=== PATIENT | male | born 1995 | race Caucasian/White ===

== ENCOUNTER 2017-05-24 03:33 | Emergency (ER) | payer OTHER ==
[2017-05-24 04:02] VITALS: BP 145/93
[2017-05-24 04:04] VITALS: PULSE 90; RESP 20; TEMP 98.1; O2SAT 98; BMI 26.4
--- NOTE | 2017-05-24 04:12 | ED PDOC ---
Arrival/HPI - General Historian: Patient - History of Present Illness Time/Duration: Prior to Arrival Symptom Onset: Sudden Symptom Course: Unchanged Severity Level: Mild Activities at Onset: Rest Context: Sitting <Valerie Valerio - Last Filed: 05/24/17 04:18> <Corey Pemberton - Last Filed: 05/24/17 06:27> - General Chief Complaint: Bite Time Seen by Provider: 05/24/17 03:47 - History of Present Illness Narrative History of Present Illness (Text): 05/24/17 04:12 21M w/no sig PMH evaluated s/p tick bite. Pt reports noting periumbilical ab pain with small lump in his umbilicus. Pt attempted to remove the lump, does not know how long the lump was present, was able to remove a tick, which feel onto his bedroom floor. Pt denies recent hiking/outdoor activities. States that the last time he was outside was several weeks ago. Denies N/V/F/C, rashes, CP, current ab pain, constipation, diarrhea, headache, vision changes, numbness/tingling, other complaints. PMH: Denies PSH: Denies All: Denies SH: Admits to occasional ETOH use (1 drink per wk), denies tobacco use, admits to MJ use and hx cocaine use (Valerie Valerio) Associated Symptoms (Text): 05/24/17 04:12 None (Valerie Valerio) Past Medical History - Provider Review Nursing Documentation Reviewed: Yes - Psychiatric Hx Substance Use: Yes - Anesthesia Hx Anesthesia: No Hx Anesthesia Reactions: No Hx Malignant Hyperthermia: No <Valerie Valerio - Last Filed: 05/24/17 04:18> Family/Social History - Physician Review Nursing Documentation Reviewed: Yes Family/Social History: No Known Family HX Smoking Status: Never Smoked Hx Alcohol Use: Yes Frequency of alcohol use: Socially Hx Substance Use: Yes Substance used: cocaine <Valerie Valerio - Last Filed: 05/24/17 04:18> Allergies/Home Meds <Valerie Valerio - Last Filed: 05/24/17 04:18> <Corey Pemberton - Last Filed: 05/24/17 06:27> Allergies/Adverse Reactions: Allergies No Known Allergies Allergy (Verified 11/13/15 01:46) Review of Systems - Physician Review All systems were reviewed & negative as marked: Yes - Review of Systems Constitutional: Normal. absent: Fevers Eyes: Normal. absent: Vision Changes ENT: Normal. absent: Sore Throat Respiratory: Normal. absent: SOB Cardiovascular: Normal. absent: Chest Pain Gastrointestinal: Normal. absent: Abdominal Pain, Constipation, Diarrhea, Nausea, Vomiting Genitourinary Male: Normal. absent: Dysuria, Frequency, Hematuria Musculoskeletal: Normal. absent: Back Pain Skin: Normal. absent: Rash, Pruritis, Skin Lesions Neurological: Normal. absent: Headache <Valerie Valerio - Last Filed: 05/24/17 04:18> Physical Exam Vital Signs Reviewed: Yes Temperature: Afebrile Blood Pressure: Normal Pulse: Regular Respiratory Rate: Normal Appearance: Positive for: Well-Appearing, Non-Toxic, Comfortable Pain Distress: None Mental Status: Positive for: Alert and Oriented X 3 - Systems Exam Head: Present: Atraumatic, Normocephalic Extroacular Muscles: Present: EOMI Conjunctiva: Present: Normal Mouth: Present: Moist Mucous Membranes Nose (External): Present: Atraumatic Neck: Present: Normal Range of Motion Respiratory/Chest: Present: Clear to Auscultation, Good Air Exchange. No: Respiratory Distress, Accessory Muscle Use Cardiovascular: Present: Regular Rate and Rhythm. No: Murmurs, Normal S1, S2 Abdomen: Present: Normal Bowel Sounds. No: Tenderness, Distention, Peritoneal Signs Back: Present: Normal Inspection Upper Extremity: Present: Normal Inspection. No: Cyanosis, Edema Lower Extremity: Present: Normal Inspection. No: Edema Neurological: Present: GCS=15, CN II-XII Intact, Speech Normal Skin: Present: Warm, Dry, Erythematous (periumbilical) Psychiatric: Present: Alert, Oriented x 3, Normal Insight, Normal Concentration <Valerie Valerio - Last Filed: 05/24/17 04:18> Vital Signs Temp Pulse Resp BP Pulse Ox 05/24/17 04:02 145/93 H 05/24/17 03:51 98.1 F 90 20 98 Medical Decision Making <Valerie Valerio - Last Filed: 05/24/17 04:18> <Corey Pemberton - Last Filed: 05/24/17 06:27> ED Course and Treatment: 05/24/17 04:10 Pt seen/evaluated, will treat prophylactically for Lyme disease due to tick bite. (Valerie Valerio) Impression: Pt seen and evaluated with medical insurance verifier. Pt presented complaining of a tick bite to his umbilicus. Pt states he removed the insect while at home. Aware and agree with HPI, clinical findings, plan, and management. Plan: -- Doxycycline -- Reassess and disposition (Corey Pemberton) - Medication Orders Current Medication Orders: Discontinued Medications Doxycycline Hyclate (Doryx) 100 mg PO STAT STA PRN Reason: Protocol Stop: 05/24/17 04:09 Last Admin: 05/24/17 04:31 Dose: 100 mg - PA / CAD DEVELOPER / Resident Statement / has reviewed & agrees with the documentation as recorded. / has examined the patient and agrees with the treatment plan. <Corey Pemberton - Last Filed: 05/24/17 06:27> Disposition/Present on Arrival - Present on Arrival Any Indicators Present on Arrival: No History of DVT/PE: No History of Uncontrolled Diabetes: No Urinary Catheter: No History of Decub. Ulcer: No History Surgical Site Infection Following: None - Disposition Have Diagnosis and Disposition been Completed?: Yes Disposition Time: 04:09 Patient Plan: Discharge <Valerie Valerio - Last Filed: 05/24/17 04:18> <Corey Pemberton - Last Filed: 05/24/17 06:27> - Disposition Diagnosis: Tick bite of abdomen Disposition: HOME/ ROUTINE Condition: STABLE Discharge Instructions (ExitCare): Tick Bite (ED) Prescriptions: Doxycycline Hyclate 100 mg PO BID #42 capsule Forms: [employer] (Libyan)
== END 2017-05-24 04:20 | disposition home or self-care (01) ==
LOC: ED 03:33
DX: S30.861A Insect bite (nonvenomous) of abdominal wall, initial encounter (principal); W57.XXXA Bitten or stung by nonvenomous insect and other nonvenomous arthropods, initial encounter; Y93.89 Activity, other specified; Y92.89 Other specified places as the place of occurrence of the external cause

== ENCOUNTER 2018-03-14 13:58 | Emergency (ER) | payer OTHER ==
[2018-03-14 13:59] VITALS: BMI 26.4
[2018-03-14 14:18] VITALS: RESP 18; TEMP 98.6
--- NOTE | 2018-03-14 14:41 | ED PDOC ---
Arrival/HPI - General Chief Complaint: Back Pain Time Seen by Provider: 03/14/18 14:26 Historian: Patient - History of Present Illness Narrative History of Present Illness (Text): 03/14/18 14:26 22 y/o male, no significant pmh, nkda, c/o need prescription refill for flexeril. Pt. stated that he has chronic neck and lower back spasm/pain, no fall or trauma, seen at 3 different ER since 01/2018 and as per patient Xrays of cervical and LS spines are all negative for fracture or subluxation, no numbness or tingling, no urinary or bowel incontinence or retention, no night sweat, no flank pain, no palpitation, no change in characteristic of pain or severity, no new injury or fall since the last image study, request MRI at the ER with no worsening signs or symptoms, no other medical or psychological complaints. Past Medical History - Provider Review Nursing Documentation Reviewed: Yes - Psychiatric Hx Substance Use: Yes - Anesthesia Hx Anesthesia: No Hx Anesthesia Reactions: No Hx Malignant Hyperthermia: No Family/Social History - Physician Review Nursing Documentation Reviewed: Yes Family/Social History: Unknown Family HX Smoking Status: Never Smoked Hx Alcohol Use: Yes Hx Substance Use: Yes Substance used: cocaine Allergies/Home Meds Allergies/Adverse Reactions: Allergies No Known Allergies Allergy (Verified 11/13/15 01:46) Review of Systems - Review of Systems Constitutional: absent: Fatigue, Fevers Eyes: absent: Vision Changes ENT: absent: Hearing Changes Respiratory: absent: SOB, Cough Cardiovascular: absent: Chest Pain Gastrointestinal: absent: Abdominal Pain, Nausea, Vomiting Musculoskeletal: Back Pain, Neck Pain. absent: Arthralgias, Joint Swelling, Myalgias Skin: absent: Rash, Pruritis Neurological: absent: Headache, Dizziness Psychiatric: absent: Anxiety, Depression Physical Exam Vital Signs Reviewed: Yes Vital Signs Temp Pulse Resp BP Pulse Ox 03/14/18 14:17 98.6 F 83 18 144/90 99 Temperature: Afebrile Blood Pressure: Normal Pulse: Regular Respiratory Rate: Normal Appearance: Positive for: Well-Appearing, Non-Toxic, Comfortable Pain Distress: Mild Mental Status: Positive for: Alert and Oriented X 3 - Systems Exam Head: Present: Atraumatic, Normocephalic Pupils: Present: PERRL Extroacular Muscles: Present: EOMI Conjunctiva: Present: Normal Mouth: Present: Moist Mucous Membranes Neck: Present: Normal Range of Motion, Trachea Midline. No: Meningeal Signs, MIDLINE TENDERNESS, Paraspinal Tenderness, Lymphadenopathy Respiratory/Chest: Present: Clear to Auscultation, Good Air Exchange. No: Respiratory Distress, Accessory Muscle Use Cardiovascular: Present: Regular Rate and Rhythm, Normal S1, S2. No: Murmurs Abdomen: No: Tenderness, Distention, Peritoneal Signs Back: Present: Normal Inspection. No: CVA Tenderness, Midline Tenderness, Paraspinal Tenderness, Pain with Leg Raise, Decubitus Ulcer Upper Extremity: Present: Normal Inspection. No: Cyanosis, Edema Lower Extremity: Present: Normal Inspection. No: Edema Neurological: Present: GCS=15, CN II-XII Intact, Speech Normal Skin: Present: Warm, Dry, Normal Color. No: Rashes Psychiatric: Present: Alert, Oriented x 3, Normal Insight, Normal Concentration Medical Decision Making ED Course and Treatment: 03/14/18 14:48 -I explained to the patient that he should have MRI cervical and Lumbar spine outpatient as we don't have MRI today. -Pt. refused pain med -Discharge home with motrin, flexeril, follow up with your own pmd and orthopedic within 2 days, return to the ER for any new or worsening signs or symptoms. - PA / SURGERY TEACHER / Resident Statement / has reviewed & agrees with the documentation as recorded. Disposition/Present on Arrival - Present on Arrival Any Indicators Present on Arrival: No History of DVT/PE: No History of Uncontrolled Diabetes: No Urinary Catheter: No History of Decub. Ulcer: No History Surgical Site Infection Following: None - Disposition Have Diagnosis and Disposition been Completed?: Yes Diagnosis: Chronic neck and back pain Disposition: HOME/ ROUTINE Disposition Time: 14:50 Patient Plan: Discharge Condition: GOOD Additional Instructions: -Discharge home with motrin, flexeril, follow up with your own pmd and orthopedic within 2 days, return to the ER for any new or worsening signs or symptoms. Prescriptions: Cyclobenzaprine [Cyclobenzaprine HCl] 10 mg PO TID PRN #21 tab PRN Reason: Other Ibuprofen [Motrin Tab] 600 mg PO QID PRN #20 tab PRN Reason: Other Referrals: Mukund Vail DO [Staff Provider] - [place] up [place] [facility] [place] [facility] [place] - Follow up with primary Forms: [facility] [employer] (Bulgarian), WORK NOTE
[2018-03-14 15:32] VITALS: BP 128/72; PULSE 79; O2SAT 100
== END 2018-03-14 15:32 | disposition home or self-care (01) ==
LOC: ED 13:58
DX: M54.2 Cervicalgia (principal); M54.9 Dorsalgia, unspecified; G89.29 Other chronic pain